=== PATIENT | male | born 1955 | race Caucasian/White ===

== ENCOUNTER 2019-06-13 06:10 | Day surgery (SDC) | payer OTHER ==
[2019-06-12 11:44] VITALS: BMI 32.8
--- NOTE | 2019-06-12 13:05 | HP ---
HISTORY OF PRESENT ILLNESS: Mr. Blair presents today with low back pain, left buttock and left lower extremity pain as well as some minor right lower extremity pain. He brings an MRI on disc, which reveals severe lumbar stenosis at L4-L5, which fits his symptoms well. He has treated this in the past with epidural steroid injections, physical therapy, and various medications, none of which provided substantial relief and he hopes to move forward with surgical intervention if possible. PAST MEDICAL HISTORY: Osteoarthritis, osteoporosis, gastroesophageal reflux disease, coronary artery disease, hyperlipidemia, hypertension, anxiety. CURRENT MEDICATIONS: 1. Pantoprazole. 2. Aspirin. 3. Atorvastatin. 4. Carvedilol. 5. Sertraline. 6. Naproxen. 7. Ibuprofen. 8. Percocet. 9. Baclofen. 10. Methocarbamol. 11. Forteo. PAST SURGICAL HISTORY: Unspecified knee surgery and cardiac intervention. ALLERGIES: NO KNOWN DRUG ALLERGIES. PHYSICAL EXAMINATION: The patient is alert and oriented x3. Gait is severely antalgic, slow and stooped. Lower extremity motor exam is normal. He does have a positive bilateral straight leg raise. ASSESSMENT: Lumbar stenosis with claudication and radiculopathy. PLAN: Dr. Go met with the patient, reviewed imaging, and advocated for an L4-L5 decompression. He explained to the patient the risks, benefits, and alternatives to the procedure. The patient expressed understanding and elected to move forward with surgery as discussed. I do believe the patient is mentally competent and capable of making medical decisions for himself. We will move forward with surgery as planned. Job ID: [id number]
[2019-06-13] MEDS ORDERED: Fentanyl 100 MCG/2 ML VIAL ONE ×2 (06:53→09:27)
[2019-06-13] MEDS ORDERED: Bupivacaine HCl 0.5%/Epinephrine 1:200,000/PF 30 ml Vial ONE ×2 (06:55)
[2019-06-13] MEDS ORDERED: Thrombin 5000 UNITS/5 ML VIAL ONE (06:55)
[2019-06-13] MEDS ORDERED: Tamsulosin HCl 0.4 MG CAP ONE (09:33)
[2019-06-13] MEDS ORDERED: HYDROcodone/Acetaminophen 5/325 mg Tablet ONE ×2 (10:42→11:33)
--- NOTE | 2019-06-13 11:35 | OP ---
DATE OF PROCEDURE: 06/13/2019 PV INSTALLER TECH: Buck Kelly PA-C INDICATION: Pain. DIAGNOSES: Lumbar stenosis, lumbar radiculopathy. PROCEDURE PERFORMED: L4-L5 decompression. ANESTHESIA: General. DESCRIPTION OF PROCEDURE: The patient was brought into the operating room, placed under general anesthesia. He was flipped from the supine to prone position on the operating room table. A linear incision was planned over the L4-L5 segment. After prepping and draping and after an appropriate operative pause, the incision was created. The soft tissues were swept away from midline. A self-retaining retractor was placed in the wound for optimal exposure. After confirming appropriate level with C-arm fluoroscopy, high-speed cutting drill bit as well as 2, 3, and 4 mm Kerrison's were used to perform a laminectomy at the L4-L5 segment. The lateral recesses were decompressed by extending the laminectomy into the medial aspect of the facet joint. On the left side, there was what appeared to be a synovial cyst within the lateral recess that was not identified on the patient's MRI scan. Synovial cyst was removed. In the end, the L4-L5 segment was well decompressed. The wound was irrigated. Hemostasis was maintained throughout. The wound was then closed in anatomic layers and a pressure dressing was applied. There were no known procedural complications. Job ID: [id number]
--- NOTE | 2019-06-13 16:55 | EKG ---
Test Reason : PREOP Blood Pressure : / mmHG Vent. Rate : 052 BPM Atrial Rate : 052 BPM P-R Int : 180 ms QRS Dur : 092 ms QT Int : 408 ms P-R-T Axes : 026 019 013 degrees QTc Int : 379 ms Sinus bradycardia Otherwise normal ECG No previous ECGs available Confirmed by DR. Lina SWANSON ([id number]) on 06/13/2019 4:54:56 PM Referred By: TIMA Confirmed By:DR. Lina SWANSON
== END 2019-06-13 13:25 | disposition home or self-care (01) ==
LOC: SDC 06:10
PROVIDERS: ATTEND Neurological Surgery
PROC: 01NB0ZZ Release Lumbar Nerve, Open Approach (ICD-10-PCS; principal; 2019-06-13)
DX: M48.062 Spinal stenosis, lumbar region with neurogenic claudication (principal); M54.16 Radiculopathy, lumbar region; M71.38 Other bursal cyst, other site; M19.90 Unspecified osteoarthritis, unspecified site; M81.0 Age-related osteoporosis without current pathological fracture; K21.9 Gastro-esophageal reflux disease without esophagitis; I25.10 Atherosclerotic heart disease of native coronary artery without angina pectoris; E78.5 Hyperlipidemia, unspecified; I10 Essential (primary) hypertension; F41.9 Anxiety disorder, unspecified; Z79.82 Long term (current) use of aspirin; Z79.899 Other long term (current) drug therapy
CPT/HCPCS: 76000; 93005; 93010; J0670; J0690; J3010